=== PATIENT | male | born 1960 | race Caucasian/White ===

== ENCOUNTER 2023-10-31 09:49 | Day surgery (SDC) | payer OTHER ==
[2023-10-31] MEDS ORDERED: Sodium Bicarbonate 2.5 MEQ/5 ML VIAL ONE (10:11)
[2023-10-31] MEDS ORDERED: Lidocaine 1% PF 5 ML VIAL ONE (10:12)
[2023-10-31 11:49] VITALS: BP 156/69; TEMP 97.7
[2023-10-31] MEDS ORDERED: FLU VACC QS2023-24(6MOS UP)/PF 60 MCG/0.5 ML SYRINGE IM ONE (12:00)
== END 2023-10-31 11:45 | disposition home or self-care (01) ==
LOC: CSHRAD 09:49
PROVIDERS: ATTEND Neurological Surgery
PROC: B02BYZZ Computerized Tomography (CT Scan) of Spinal Cord using Other Contrast (ICD-10-PCS; principal; 2023-10-31)
DX: M51.16 Intervertebral disc disorders with radiculopathy, lumbar region (principal)
CPT/HCPCS: 62304; 72132